=== PATIENT | male | born 1960 | race Caucasian/White ===

== ENCOUNTER 2018-08-07 10:43 | Emergency (ER) | payer OTHER, SELFPAY ==
[2018-08-07 10:44] VITALS: BP 150/91; PULSE 80; RESP 16; TEMP 36.6; O2SAT 98; BMI 22.1
--- NOTE | 2018-08-07 11:06 | CT_ITS ---
STUDY: CT BRAIN WITH AND WITHOUT CONTRAST REASON FOR EXAM: Male, 58 years old. RADIATION DOSAGE (If Supplied By Facility): CTDIvol = ( 44.99 ) mGy, DLP = ( 1648.46 ) mGycm TECHNIQUE: Transaxial CT imaging of the brain was performed pre and post contrast administration. The examination was performed with intravenous administration of 50ml ml of Isovue 370 contrast material. Individualized dose optimization techniques were used for this CT. COMPARISON: None. FINDINGS: There is subtle skin thickening over the left occiput likely corresponding to the palpable abnormality. Normal calvarium. Normal size ventricles and extra-axial spaces for the patient's age. Normal white matter tracts of the cerebral hemispheres. Normal basal ganglia and thalami. Normal brainstem. Normal cerebellum. There is no intracranial hemorrhage. There are no findings of an acute ischemic infarction. No suspicious enhancing lesion noted Normal visualized paranasal sinuses. CT/Brain/Head W/WO Contrast IMPRESSION: Normal unenhanced and enhanced CT scan of the brain. Electronically Signed: Eric Coon MD at 12:21 EST , Service support ,
[2018-08-07] MEDS: Ondansetron 4 MG/2 ML Vial IV (11:17)
[2018-08-07] MEDS: 0.9% Normal Saline 1,000 ML 1000 ML IV (11:17)
[2018-08-07 11:33] LABS: Absolute Neutrophil Count 8.1 X10^3/uL (2.0-7.7); Basophil# 0.03 X10^3/uL; Basophil% 0.3 % (0-1); Eosinophil# 0.02 X10^3/uL; Eosinophils% 0.2 % (0-5); Hematocrit 43.3 % (40-54); Lymphocyte % 8.4 % (19-41); Mean Corp Hgb Conc 34.6 g/gl (32-36); Mean Corpuscular Hgb 30.2 pg (27.0-32.0); Mean Corpuscular Volume 87.3 fL (80-94); Monocyte% 5.3 % (0-10); Neutrophil # 8.14 X10^3/uL (2.7-7.7); Neutrophil % 85.6 % (47-70); POSITIVE COUNT NO; POSITIVE DIFFERENTIAL NO; POSITIVE MORPHOLOGY NO; Platelet Count 214 K/mm3 (150-450); RBC Distribution Width CV 13.4 % (11.6-14.6); RBC Distribution Width SD 42.7 fl (35.1-43.9); Red Blood Count 4.96 M/mm3 (4.6-6.2); White Blood Count 9.5 K/mm3 (4.4-11.0)
[2018-08-07 11:43] LABS: Anion Gap 9 (5-15); BUN 21 mg/dL (7-18); BUN/Creat Ratio 19.1 RATIO (10-20); Chloride 100 mmol/L (98-107); EST Glomerular Filtration Rate 74 mL/min (>60); Est Glom Filt Rate - Afr Amer 89 mL/min (>60); Estimated Creatinine Clearance 72.16 ml/min; Glucose 136 mg/dL (74-106); Potassium 3.8 mmol/L (3.5-5.1); Sodium Level 138 mmol/L (136-145)
--- NOTE | 2018-08-07 12:06 | ED.VISSUMM ---
- ER Visit Summary Date of Service: 08/07/18 Chief Complaint: Swelling to head History of Present Illness: The patient is a [address] Hylton. He reports that he does have a history of a bony protuberance in the occipital area of his head. However, states that today it feels as though there is a soft spot in the middle of this and he has a sensation of pressure here. States pain is 5 out of 10 at worst and through 10 currently. Is worsened by touching it. Is relieved by nothing. Ports that he feels lightheaded. This is unchanged with standing. He has not passed out. He denies any vertigo. He does complain of nausea. Review of systems: General: No fever, chills, cold sweats. Cardiovascular: No chest pain, palpitations. Respiratory: No cough, shortness of breath, dyspnea on exertion. Gastrointestinal: No abdominal pain, nausea, vomiting, diarrhea, melena, or hematochezia. Genitourinary: No dysuria, frequency, hematuria. Skin: No rash. Neuro: No headache, numbness, weakness. Physical Examination: Vitals: Stable. Afebrile. General: Well-nourished and well-developed. Head: Normocephalic atraumatic. Approximately 6 cm bony protuberance in the occipital region with a soft center to this. There is no erythema or induration. Neck: Supple, no lymphadenopathy. No JVD. Nontender. Cardiovascular: Regular rate and rhythm. No murmurs. Respiratory: No respiratory distress. Clear to auscultation bilaterally. Abdominal: Soft, nontender, nondistended, normal bowel sounds. No guarding, rebound, or peritoneal signs. Back: Nontender. Extremities: Nontender, no edema. Skin: Normal color, no rash. Neurologic: Alert and oriented ?3. Cranial nerves II through XII are intact. Normal strength and sensation. Psych: Normal affect. Test Results: CBC is remarkable for segmented neutrophils 86 lymphocytes of 8. Chem-7 is more for glucose 136 and BUN 21. Clinical Impression(s) from Imaging Studies Brain CT 08/07/18 11:06 IMPRESSION: Normal unenhanced and enhanced CT scan of the brain. Electronically Signed: Eric Coon MD at 12:21 EST , Service support , Emergency Department Course and Treatment: Patient was treated with a liter of normal saline. He was given Zofran IV. He is resting comfortably. Treatment Plan: The CT did not show any sign of abscess that would be amenable to drainage. There certainly is some soft tissue swelling. He will be discharged on doxycycline and Zofran. Instructed to follow-up his primary care physician in 2 days for wound check. Return to the emergency department for any worsening symptoms. Disposition: To home in improved and stable condition. Impression: 1. Early abscess to occipital scalp. This note was generated with [employer] dictation software. It may contain incorrect words, spelling, and punctuation that were not noted in review of the chart prior to signing ED Disposition - Plan for ED Patient: Chief Complaint: Head Injury Instructions: ED Staph Infec Abx Tx Only Prescriptions: Ondansetron [Zofran Odt] 4 mg PO Q8H PRN PRN #10 tablet PRN Reason: Nausea Meclizine HCl [Antivert] 25 mg PO 4X/DAY PRN PRN #20 tab PRN Reason: Dizziness Doxycycline 100 mg PO BID #20 capsule Referrals: Renea Hylton MD [Primary Care Provider] - 2 Days for wound check
[2018-08-07] MEDS: Meclizine HCl 25 MG Tablet PO (12:53)
[2018-08-07] MEDS: Doxycycline 100 MG CAPSULE PO (12:53)
[2018-08-07 12:56] VITALS: BP 156/80; PULSE 72; RESP 16; O2SAT 96
== END 2018-08-07 12:57 | disposition home or self-care (01) ==
LOC: ED 11:24
PROVIDERS: Emergency Provider Emergency Medicine; Family Provider Internal Medicine; PCP Internal Medicine
DX: L02.811 Cutaneous abscess of head [any part, except face] (principal); I10 Essential (primary) hypertension; K21.9 Gastro-esophageal reflux disease without esophagitis
CPT/HCPCS: 70470; 80048; 85025; 96361; 96374; 99284; J7030; Q9967; A4216; J2405

== ENCOUNTER 2019-07-20 16:30 | Outpatient (RCR) | payer OTHER, SELFPAY ==
[2018-10-20 08:59] VITALS: BMI 22.1
--- NOTE | 2019-06-03 16:56 | HP.PTEVAL_ITS ---
Patient's Visit Information ALMA POPE is a 58 year old M referred to Physical Therapy by William Valentino DPM with a diagnosis of R sesamoiditis and L peroneal tendointis. Date of Evaluation: 06/03/19 Physical Therapist: Jw Pritchard DPT, OCS, CSCS - Visit Plan Frequency: 1-2x /Week Duration: 2-4 Weeks Plan: video motion analysis for walking and fucntional movement analysis then corrective exercise prescription gait training adn recheck with EG for possible orthotics. - Subjective Findings: Sesamoid problem in R foot crushed or damaged 30 years ago running adn has not been a problem. Does not run much anymore. Walks alot 5-13 miles per day. So bottom of foot flared up at first met. Pain has subsided because they changed to to less flexion at 1 met head. Recommended EPAT shock wave adn doesn't want to spend the money. People have told him that he has a pronounced limp, L side supinates alot adn feels achy L lateral ankle. 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 Has L knee pain. Goal in PT is to get rid of limp. Has orthotics and possibly got gait analysis running. New job assignment in last 6 yrs has made him walk further. 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 On his feet alot. Sleep is OK. R foot pain is mild but much calmed downa dn uses topical antiinflammatory for mornings since has has changed shoes. L ankle achy 1-2/10 after on feet alot. L knee mildly on medial side of knee with walking, may need a scope some day. Normal activity. Has stopped running due to these pains over the last number of years. Limp is more pronounced when tired. - Pain L ankle Pain Intensity (Out of 10): 0 Pain Intensity Range: 1, 2 - Objective R sesamoiditis slightly tender to the touch. Some min tenderness L peroneal distal to malleoli. gastroc and soleus very tight B and high tone in ankel muscles. Full aROM B ankles except DF limited to neutral in ext knee adn 1 degree with knee bent. 5/5 strength in ankle muscles withotu pain. Arch is unremarkable. Gait is avoiding R push off casuing limp slightly today. Knee and hip aROM WFL. No pain with knee muscle testing 5/5. Hip testing 4+/5 abd and ext. - Goals Goal 1:: Abolish limp Goal Time Frame: 4-6 Weeks Goal 2:: Pt I in appropriate ex to limit pain and maximize function without limp. Goal 3:: Normal school day walk without increased pain Goal Time Frame: 4-6 Weeks - Rehabilitation Potential Physical Therapy Diagnosis: R sesamoiditis. Rehabilitation Potential: Fair - Anticipated Interventions Patient/Client Instruction: Educate patient on: Condition, Plan of Care For the Purpose of:: To decrease pain, To increase tolerance to activity/condition/position Therapeutic Exercise to Include: Strength training, Flexibilty training, Gait and locomotor training, Passive ROM, Active ROM For the Purpose of:: To decrease pain, To improve muscle performance and motor function, To improve ability of physical actions for home/community/work/leisure Thank you for the opportunity to evaluate your patient. For Medicare and Medicare HMO plans, please review the plan of care and approve it. It will need to be FAXED BACK to us at [phone] for Medicare purposes. For Medicare only, by signing this I certify the plan of care. Please let me know if there are questions or concerns regarding this plan of care. Physician Signature: Date:
--- NOTE | 2019-06-15 13:18 | HP.PTREVAL ---
William Valentino, DAMION, It has been my pleasure to treat ALMA POPE over the last 3 visits for R sesamoiditis and L peroneal tendointis. Please see the progress note below for an update on the physical therapy plan of care! Subjective: Thinks he got what he needed with this workout but not sure. Objective/Function: copy of exercises Plan Plan: Appropriate for weekly x4 to progress adn ensure compliance/accuracy/technique on exercises. Monitor pain in R sesamoid area and possible need for US, foot STM adn stretching. Goals Goal 1:: Abolish limp Goal Time Frame: 4-6 Weeks Goal 2:: Pt I in appropriate ex to limit pain and maximize function without limp. Goal Progress: Progressing Goal 3:: Normal school day walk without increased pain Goal Time Frame: 4-6 Weeks Anticipated Interventions Patient/Client Instruction: Educate patient on: Condition, Plan of Care For the Purpose of:: To decrease pain, To increase tolerance to activity/condition/position Therapeutic Exercise to Include: Strength training, Flexibilty training, Gait and locomotor training, Passive ROM, Active ROM For the Purpose of:: To decrease pain, To improve muscle performance and motor function, To improve ability of physical actions for home/community/work/leisure Please do not hesitate to contact me at [phone] by phone or if you have questions or concerns regarding this new plan of care! Sincerely, Jw Pritchard, DPT, OCS, CSCS
--- NOTE | 2019-07-20 17:26 | HP.PTREVAL ---
William Valentino, DAMION, It has been my pleasure to treat ALMA POPE over the last 7 visits for R sesamoiditis and L peroneal tendointis. Please see the progress note below for an update on the physical therapy plan of care! Subjective: Better. L ball of foot can be a little tender still. Doing corrective workout and slowly improving. Will see Dr. Valentino if needs be. Not keeping him from doing anything except running. Getting 48030 steps per day ad ankle is usually OK, Gets some soreness laterally on busier days. Objective/Function: Walking without deficits today, L foot slightly on outside of foot. Doing well adn slowly progressing with foot L pain adn R ankle pain. Seeing slow and steady progress and wishes to cotninue working on it himself ading ankle strength and consider new orthotics. Goals appropriate adn fair prognosis Plan Plan: f/u one month to check exercises effect adn orthotics and then d/c or get new orthotics. Pt other options with doctor are EPAT which is costly adn surgery to remove sesamoid which he does not want so he is willing to keep working in gym Goals Goal 1:: Abolish limp Goal Time Frame: 4-6 Weeks Goal Progress: Goal Met except long dist Goal 2:: Pt I in appropriate ex to limit pain and maximize function without limp. Goal Progress: Goal Met Goal 3:: Normal school day walk without increased pain Goal Time Frame: 4-6 Weeks Goal Progress: Progressing Goal 4:: Pat continue to see progress in foot adn ankle pain wihtout regular therapy Goal Time Frame: 4-6 Weeks Goal Progress: NEW GOAL Anticipated Interventions Patient/Client Instruction: Educate patient on: Condition, Plan of Care For the Purpose of:: To decrease pain, To increase tolerance to activity/condition/position Therapeutic Exercise to Include: Strength training, Flexibilty training, Gait and locomotor training, Passive ROM, Active ROM For the Purpose of:: To decrease pain, To improve muscle performance and motor function, To improve ability of physical actions for home/community/work/leisure Please do not hesitate to contact me at [phone] by phone or if you have questions or concerns regarding this new plan of care! Sincerely, Jw Pirtchard, DPT, OCS, CSCS
--- NOTE | 2019-09-07 14:57 | HP.PTDCNRP_ITS ---
HP - Discharge Summary (1) - Patient Information ALMA POPE was seen in my office for initial evaluation on 06/03/19. The following Plan of Care was established for this patient: Initial Frequency: 1-2x /Week Initial Duration: 2-4 Weeks - Anticipated Interventions Patient/Client Instruction: Educate patient on: Condition, Plan of Care For the Purpose of:: To decrease pain, To increase tolerance to activity/c ondition/position Therapeutic Exercise to Include: Strength training, Flexibilty training, Gait and locomotor training, Passive ROM, Active ROM For the Purpose of:: To decrease pain, To improve muscle performance and motor function, To improve ability of physical actions for home/community/work/leisure This patient was last seen in our office 07/20/20. Pertinent comments regarding their Physical therapy will appear below: Pt seen 7 visits POC. He was doing better adn was to continue HEP and f/u in mid August. He neglected to schedule or attend that visit. At this point, I will disocntinue due to nonattendance. At this point I will be discontinuing this patient from physical therapy. I would be happy to see this patient again in the future if found appropriate by the physician. Thank you! Jw Pritchard, DPT, OCS, CSCS
== END 2019-07-20 19:00 | disposition home or self-care (01) ==
LOC: PT 16:30
PROVIDERS: Family Provider Internal Medicine; PCP Internal Medicine; Referring Provider Podiatrist; Visit Provider Podiatrist
DX: M25.80 Other specified joint disorders, unspecified joint (principal); M77.9 Enthesopathy, unspecified; T14.8XXD Other injury of unspecified body region, subsequent encounter
CPT/HCPCS: 97110; 97162; 97530

== ENCOUNTER 2021-01-07 06:56 | Emergency (ER) | payer OTHER, SELFPAY ==
[2018-10-20 08:59] VITALS: BMI 22.1
[2021-01-07 06:56] VITALS: BP 149/103; PULSE 104; RESP 16; TEMP 36.7; O2SAT 98; BMI 24.8
--- NOTE | 2021-01-07 07:10 | EX.ED.DYSGE1 ---
HPI History of Present Illness Chief Complaint: Rash Informant: patient Onset/Context/Timing Onset: Weeks (1) Context: Gradual Onset Timing: Continuous Quality: sore/achy Location: left hemithorax Current Severity: Moderate Maximum Severity: Moderate Worsened by: touching Relieved by: nothing but hasn't tried any treatments Associated Symptoms Associated Symptoms: none Narrative Narrative: Patient presenting with an EKG rash on his left chest and back that has been there for about a week. 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 He denies any itching. He states he had some pustules that have broken and scabbed over. He had chicken pox as a child and has never had shingles, nor the vaccine. No recent illness or new medications, although he has weaned himself off of sertraline recently. [facility] Medical History Arthritis Hypertension Knee pain Home Medications lisinopril-hydrochlorothiazide 1 ea PO DAILY 08/07/18 [History Last Taken Unknown] meclizine 25 mg PO 4X/DAY PRN PRN #20 tab 08/07/18 [Rx Last Taken Unknown] ondansetron 4 mg PO Q8H PRN PRN #10 tab 08/07/18 [Rx Last Taken Unknown] pantoprazole 40 mg PO DAILY 08/07/18 [History Last Taken Unknown] sucralfate 1 tab PO TID 08/07/18 [History Last Taken Unknown] Allergy/AdvReac Type Severity Reaction Status Date / Time No Known Allergies Allergy Verified 01/07/21 07:00 Family History (Updated 10/20/18 @ 08:59 by Maylin Briceno) Other Diabetes Heart disease Hypertension Surgical History History of colonoscopy Social History Smoking Status: Never smoker alcohol intake: never ROS ROS ED Constitutional Constitutional ED: Denies chills, fever(s) or malaise Eyes Eyes: Denies change in vision or diplopia Respiratory/Chest Respiratory/Chest: Denies cough or dyspnea Gastrointestinal Gastrointestinal: Denies diarrhea, nausea or vomiting Integumentary Reports rash; Denies abscess Neurologic Neurologic: Denies headache(s), paresthesias or weakness Allergic/Immunologic Allergic/Immunologic ED: Denies mouth swelling, tongue swelling or urticaria EXAM Physical Exam Const Vital Signs: 01/07/21 06:56 Temperature 98.1 F Temperature Source Oral Pulse Rate 104 H Respiratory Rate 16 Blood Pressure 149/103 H Blood Pressure Mean 118 Pulse Ox 98 Oxygen Delivery Method Room Air Positive well nourished and well developed General Appearance ED: well developed and NAD Skin Skin Narrative: faint erythemetous patches in dermatomal distribution, no discharge, bullae, petechiae, pustules, or other lesion. No other dermatomal strips involved. Rashes: rashes noted left hemithorax patch left T8 dermatome dermatomal red MDM MDM MDM Narrative Medical decision making narrative: Consistent with herpes zoster. Patient is outside of the window for antivirals and steroids since he has had it for a week or so. He has a relatively mild case, he is not miserable with regards to pain. 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 We discussed contagiousness and pain control including NSAIDs, Tylenol, and topical capsaicin as needed. He may still be a candidate for vaccination but not while he has the rash. He can follow-up routinely. Discharge Plan Triage Chief Complaint: Rash ED Provider: Sylvain Posey Dx/Rx/DC Orders Clinical Impression: Herpes zoster Instructions: ED Shingles (Herpes Zoster) Prescriptions: No Action lisinopril-hydrochlorothiazide 1 EACH tablet 1 ea PO DAILY RF: 0 sucralfate 1 tablet 1 tab PO TID RF: 0 pantoprazole 40 MG tablet 40 mg PO DAILY RF: 0 ondansetron 4 MG tablet 4 mg PO Q8H PRN PRN (Reason: Nausea) Qty: 10 RF: 0 meclizine 25 MG tablet 25 mg PO 4X/DAY PRN PRN (Reason: Dizziness) Qty: 20 RF: 0 Primary Care Provider: Renea Hylton Referrals: Renea Hylton MD [Primary Care Provider] - Activity Restrictions/Additional Instructions: May try a topical capsaicin preparation or patch for pain control, and/or trying ibuprofen. Disposition Disposition: Home, self care
== END 2021-01-07 07:27 | disposition home or self-care (01) ==
LOC: ED 07:26
PROVIDERS: Emergency Provider Emergency Medicine; PCP Internal Medicine
DX: B02.9 Zoster without complications (principal); I10 Essential (primary) hypertension
CPT/HCPCS: 99282